=== PATIENT | female | born 1985 | race Caucasian/White ===

== ENCOUNTER 2021-07-14 19:30 | Emergency (ER) | payer OTHER ==
[~2021-07-14 19:30] MED LIST: TAMIFLU 75 MG C75 MG PO
[2021-07-14 21:03] LABS: HEMOGLOBIN 14.4 gm/dl (12.3-15.3); RED BLOOD COUNT 4.54 M/UL (4.00-5.10); WHITE BLOOD COUNT 11.5 K/UL (4.5-11.0)
[2021-07-14 21:26] LABS: BUN/CREATININE RATIO 15 (0-10)
[2021-07-14] MEDS ORDERED: IBUPROFEN600 MG PO (22:47)
[2021-07-14] MEDS ORDERED: NORFLEX 100 MG100 MG PO (22:47)
[2021-07-14] MEDS ORDERED: OMNICEF 300 MG300 MG PO (22:48)
== END 2021-07-14 23:09 | disposition home or self-care (01) ==
LOC: ER1 19:30
PROVIDERS: Physician Assistant
DX: S13.9XXA Sprain of joints and ligaments of unspecified parts of neck, initial encounter (principal); S33.5XXA Sprain of ligaments of lumbar spine, initial encounter; S00.33XA Contusion of nose, initial encounter; N39.0 Urinary tract infection, site not specified; Z88.0 Allergy status to penicillin; V49.40XA Driver injured in collision with unspecified motor vehicles in traffic accident, initial encounter; Y92.410 Unspecified street and highway as the place of occurrence of the external cause
CPT/HCPCS: 70160; 70450; 72125; 72131; 80053; 81001; 83690; 84703; 85025; 99284

== ENCOUNTER → 2021-10-27 | Outpatient (CLI) | payer OTHER ==
[~2021-10-27] MED LIST changes: +IBUPROFEN600 MG PO; +NORFLEX 100 MG100 MG PO; +OMNICEF 300 MG300 MG PO
== END ==
LOC: EMI 15:34
DX: M50.822 Other cervical disc disorders at C5-C6 level (principal); M54.89 Other dorsalgia; M25.511 Pain in right shoulder; M79.671 Pain in right foot; V49.40XA Driver injured in collision with unspecified motor vehicles in traffic accident, initial encounter; M51.34 Other intervertebral disc degeneration, thoracic region; M51.24 Other intervertebral disc displacement, thoracic region
CPT/HCPCS: 72141; 72146